=== PATIENT | female | born 1975 | race Caucasian/White ===

== ENCOUNTER 2017-08-29 11:23 | Day surgery (SDC) | payer OTHER ==
[~2017-08-29 11:23] MED LIST: ATROPINE 1 MG/10 ML SYRINGE IV; DIPHENHYDRAMINE 50 MG INJ IV; EPHEDrine SULFATE 50 MG/5 ML SYG IV; FENTAnyl 50 MCG/ML VIAL IV; HYDROmorphONE (0.2 MG/ML) 10ML SYG IV; LABETALOL HCL 20MG INJ IV; MEPERIDINE 25 MG INJ IV; MIDAZOLAM 1 MG/ML 2 ML INJ IV; ONDANSETRON 4 MG INJ IV; OXYCODONE/ACETAMINOPHEN (5/325) TAB PO; hydrALAzine 20 MG INJ IV; morphine (1 MG/ML) 10ML SYRINGE IV
[2017-08-29 12:40] LABS: BARBITURATES Negative (NEGATIVE); BENZODIAZEPINES Negative (NEGATIVE); CANNABINOIDS Negative (NEGATIVE); COCAINE Negative (NEGATIVE); OPIATES Negative (NEGATIVE)
[2017-08-29 12:53] LABS: AMPHETAMINE/METHAMPHETAMINE POSITIVE (NEGATIVE)
== END 2017-08-29 14:00 | disposition home or self-care (01) ==
LOC: SDS 11:23 → LAB 11:23
DX: K13.0 Diseases of lips (principal); Z53.9 Procedure and treatment not carried out, unspecified reason
CPT/HCPCS: 80307

== ENCOUNTER 2017-10-31 09:02 | Day surgery (SDC) | payer OTHER ==
[~2017-10-31 09:02] MED LIST changes: -ATROPINE 1 MG/10 ML SYRINGE IV; -DIPHENHYDRAMINE 50 MG INJ IV; -EPHEDrine SULFATE 50 MG/5 ML SYG IV; -FENTAnyl 50 MCG/ML VIAL IV; -HYDROmorphONE (0.2 MG/ML) 10ML SYG IV; -LABETALOL HCL 20MG INJ IV; -MEPERIDINE 25 MG INJ IV; -MIDAZOLAM 1 MG/ML 2 ML INJ IV; -ONDANSETRON 4 MG INJ IV; -OXYCODONE/ACETAMINOPHEN (5/325) TAB PO; +SOD CHLORIDE 0.9% 1,000 ML IV; -hydrALAzine 20 MG INJ IV; -morphine (1 MG/ML) 10ML SYRINGE IV
[2017-10-31 10:51] LABS: AMPHETAMINE/METHAMPHETAMINE Negative (NEGATIVE); BARBITURATES Negative (NEGATIVE); BENZODIAZEPINES Negative (NEGATIVE); CANNABINOIDS Negative (NEGATIVE); COCAINE Negative (NEGATIVE); OPIATES Negative (NEGATIVE)
[2017-10-31 11:00] LABS: ADD MAN DIFF? NO
[2017-10-31 11:02] LABS: BASOPHILS % 0.6 % (0.0-2.0); EOSINOPHILS # 0.1 10^3/ul (0.0-0.5); EOSINOPHILS % 1.1 % (0.0-7.0); HEMATOCRIT 40.5 % (37.0-47.0); HEMOGLOBIN 13.2 g/dl (12.0-16.0); LYMPHOCYTES % 28.2 % (15.0-51.0); MEAN CORPUSCULAR HEMOGLOBIN 30.1 pg (29.0-33.0); MEAN CORPUSCULAR HGB CONC 32.6 g/dl (32.0-37.0); MEAN CORPUSCULAR VOLUME 92.5 fl (82.0-101.0); MEAN PLATELET VOLUME 10.1 fl (7.4-10.4); MONOCYTE # 0.5 10^3/ul (0.3-0.9); MONOCYTES % 7.7 % (0.0-11.0); NEUTROPHIL # 4.3 10^3/ul (1.6-7.5); NEUTROPHILS % 62.1 % (39.0-77.0); PLATELET COUNT 258 10^3/UL (140-415); RED BLOOD COUNT 4.38 10^6/ul (4.20-5.40); RED CELL DISTRIBUTION WIDTH 12.9 % (11.5-14.5)
[2017-10-31] MEDS ORDERED: FENTAnyl 50 MCG/ML VIAL ×2 (11:37→13:54)
[2017-10-31] MEDS ORDERED: LIDOCAINE 1% (MDV) 20 ML INJ (11:37)
[2017-10-31] MEDS ORDERED: PROPOFOL 20 ML (11:37)
[2017-10-31] MEDS ORDERED: MIDAZOLAM 1 MG/ML 2 ML INJ (11:37)
[2017-10-31] MEDS ORDERED: ROCURONIUM 50 MG INJ ×2 (11:37→11:46)
[2017-10-31] MEDS ORDERED: SUGAMMADEX SODIUM 200 MG/2 ML VIAL IV ×2 (12:05→13:37)
[2017-10-31] MEDS ORDERED: OXYCODONE/ACETAMINOPHEN (5/325) TAB PO ×3 (12:30→13:00)
[2017-10-31] MEDS ORDERED: ONDANSETRON 4 MG INJ IV ×2 (12:30→13:00)
[2017-10-31] MEDS ORDERED: LABETALOL HCL 20MG INJ IV (12:30)
[2017-10-31] MEDS ORDERED: HYDROmorphONE 1 MG/5 ML IV SYRINGE IV ×2 (12:30)
[2017-10-31] MEDS ORDERED: hydrALAzine 20 MG INJ IV (12:30)
[2017-10-31] MEDS: LIDOCAINE 1%/EPI 30 ML INJ (12:55)
[2017-10-31] MEDS ORDERED: PHENYLephrine (100 MCG/ML) 5ML SYG ×3 (12:56→13:33)
[2017-10-31] MEDS ORDERED: ONDANSETRON 4 MG INJ (12:57)
[2017-10-31] MEDS ORDERED: DEXAMETHASONE 4 MG/ML 1 ML INJ (12:57)
[2017-10-31] MEDS ORDERED: CEFAZOLIN 1 GM INJ (12:57)
[2017-10-31] MEDS ORDERED: HYDROCODONE/APAP (5/325) TAB PO (13:00)
[2017-10-31] MEDS ORDERED: morphine 2 MG INJ IV (13:00)
[2017-10-31] MEDS ORDERED: ACETAMINOPHEN 325 MG TAB PO (13:00)
[2017-10-31] MEDS: BACITRACIN 0.9 GM OINT (13:40)
== END 2017-10-31 15:25 | disposition home or self-care (01) ==
LOC: SDS 09:02
DX: Q38.0 Congenital malformations of lips, not elsewhere classified (principal); D18.01 Hemangioma of skin and subcutaneous tissue
CPT/HCPCS: 14060; 80307; 84703; 85025; 88305